=== PATIENT | female | born 1985 | race Caucasian/White ===

== ENCOUNTER 2017-10-17 16:16 | Emergency (ER) | payer OTHER ==
[2017-10-17 16:32] VITALS: BP 92/59; PULSE 73; RESP 20; TEMP 98.9; O2SAT 99
[2017-10-17 17:24] LABS: BASO % 0.5 % (0.0-2.0); EOS # 0.4 K/uL (0.0-0.7); EOS % 4.9 % (0.0-4.0); HEMATOCRIT 35.6 % (34.0-47.0); LYMPH # 1.5 K/uL (1.0-4.3); LYMPH % 20.6 % (20.0-40.0); MEAN CELL VOLUME 90.1 fl (81.0-99.0); MEAN CORPUSCULAR HEMOGLOBIN 29.5 pg (27.0-31.0); MEAN CORPUSCULAR HGB CONC 32.8 g/dL (33.0-37.0); MEAN PLATELET VOLUME 7.7 fl (7.2-11.7); MONO # 0.4 K/uL (0.0-0.8); MONO % 6.1 % (0.0-10.0); NEUT % 67.9 % (50.0-75.0); RED CELL DISTRIBUTION WIDTH 14.8 % (11.5-14.5); WHITE BLOOD COUNT 7.3 K/uL (4.8-10.8)
[2017-10-17 17:29] LABS: ALB/GLOB RATIO 1.3 (1.0-2.1); BILIRUBIN,TOTAL 0.5 mg/dl (0.2-1.3); CALCIUM 8.7 mg/dL (8.4-10.2); CARBON DIOXIDE 25 mmol/L (22-30); CHLORIDE 108 mmol/L (98-107); GFR AFRICAN-AMERICAN > 60; GLUCOSE,RANDOM 98 mg/dL (65-105); SODIUM 139 mmol/l (132-148)
--- NOTE | 2017-10-17 17:29 | ED PDOC ---
HPI: Abdomen Time Seen by Provider: 10/17/17 16:36 Chief Complaint (Nursing): Female Genitourinary Chief Complaint (Provider): Vaginal bleeding History Per: Patient History/Exam Limitations: no limitations Onset/Duration Of Symptoms: Other (1 week) Additional Complaint(s): Patient is a 32 y/o female with no significant past medical history presenting to the emergency department for vaginal bleeding ongoing for one week after an elective in [place], [place]. Reports that the bleeding has increased after returning to work and also noted lower abdominal pain. Reports using five pads today. Denies fever, nausea, vomiting, or other complaints. PCP: none provided. Past Medical History Reviewed: Historical Data, Nursing Documentation, Vital Signs Vital Signs: Last Vital Signs Temp 98.9 F 10/17/17 16:29 Pulse 73 10/17/17 16:29 Resp 20 10/17/17 16:29 BP 92/59 L 10/17/17 16:29 Pulse Ox 99 10/17/17 19:21 - Medical History PMH: No Chronic Diseases - Surgical History Surgical History: No Surg Hx - Family History Family History: States: Unknown Family Hx - Immunization History Hx Tetanus Toxoid Vaccination: No - Home Medications Home Medications: Ambulatory Orders Medication Instructions Recorded Nitrofurantoin Macrocrystals 100 mg PO BID #13 cap 03/07/16 [Macrobid] Cephalexin [cephalexin] 500 mg PO BID #10 cap 06/15/16 Naproxen [Naprosyn] 500 mg PO BID PRN #15 tablet 10/17/17 - Allergies Allergies/Adverse Reactions: Allergies Allergy/AdvReac Type Severity Reaction Status Date / Time No Known Allergies Allergy Verified 03/07/16 17:42 Review of Systems ROS Statement: Except As Marked, All Systems Reviewed And Found Negative Constitutional: Negative for: Fever Gastrointestinal: Positive for: Abdominal Pain (lower). Negative for: Nausea, Vomiting Genitourinary Female: Positive for: Vaginal Bleeding Physical Exam - Reviewed Nursing Documentation Reviewed: Yes Vital Signs Reviewed: Yes - Physical Exam Appears: Positive for: Well, Non-toxic, No Acute Distress Head Exam: Positive for: ATRAUMATIC, NORMAL INSPECTION, NORMOCEPHALIC Skin: Positive for: Normal Color, Warm, Dry Eye Exam: Positive for: Normal appearance ENT: Positive for: Normal ENT Inspection Neck: Positive for: Normal Cardiovascular/Chest: Positive for: Regular Rate, Rhythm. Negative for: Murmur Respiratory: Positive for: Normal Breath Sounds. Negative for: Accessory Muscle Use, Respiratory Distress Gastrointestinal/Abdominal: Positive for: Normal Exam, Soft. Negative for: Tenderness Pelvic Exam: Positive for: External Exam Normal, Blood (Scant). 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 Medical Decision Making Medical Decision Making: Time: 16:39 Initial impression: Vaginal bleeding s/p Initial plan: Type and Screen CMP, Beta-HCG PTT, Prothrombin Time Urinalysis ED Urine Dipstick Pelvic/transvaginal ultrasound Reevaluation Scribe Attestation: Documented by Samira Stovall, acting as a scribe for Sully Ca MD. Provider Scribe Attestation: All medical record entries made by the Scribe were at my direction and personally dictated by me. I have reviewed the chart and agree that the record accurately reflects my personal performance of the history, physical exam, medical decision making, and the department course for this patient. I have also personally directed, reviewed, and agree with the discharge instructions and disposition. Disposition - Clinical Impression Clinical Impression: Postoperative vaginal bleeding following non-genitourinary procedure - Disposition Disposition: Routine/Home Disposition Time: 19:30 Condition: STABLE Additional Instructions: FOLLOW-UP WITH YOUR OB-DISTRICT LEADER FOR REEVALUATION. Prescriptions: Naproxen [Naprosyn] 500 mg PO BID PRN #15 tablet PRN Reason: Pain, Moderate (4-7) Instructions: Dilation and Curettage (GEN) Forms: [employer] (Thai), [facility] ED School/Work Excuse
[2017-10-17 17:30] LABS: PARTIAL THROMBOPLASTIN TIME 25.7 Seconds (25.6-37.1)
[2017-10-17 17:37] LABS: ALKALINE PHOSPHATASE 40 U/L (38-126); ALT/SGPT 25 U/L (9-52); AST/SGOT 30 U/L (14-36); BLOOD UREA NITROGEN 12 mg/dl (7-17); POTASSIUM 4.4 MMOL/L (3.6-5.0)
--- NOTE | 2017-10-17 18:11 | US ---
HISTORY: Bleeding s/p elective Ab COMPARISON: None available. TECHNIQUE: Real-time transabdominal pelvic ultrasound was performed. In addition a transvaginal pelvic ultrasound was necessary to better depict pelvic anatomy. FINDINGS: UTERUS: Measures 6.9 x 3.8 x 4.6 cm. Anteverted. ENDOMETRIUM: Measures 6 mm in diameter. CERVIX: No cervical abnormality identified. RIGHT OVARY: Measures 3.0 x 1.1 x 2.6 cm. Blood flow is demonstrated. LEFT OVARY: Measures 3.2 x 1.5 x 2.0 cm. Blood flow is demonstrated. FREE FLUID: Small pelvic free fluid. OTHER FINDINGS: None. IMPRESSION: Small pelvic free fluid.
[2017-10-17 18:28] LABS: RBC URINE 1 /hpf (0-3); URINE BILIRUBIN NEGATIVE (NEGATIVE); URINE BLOOD SMALL (NEGATIVE); URINE COLOR YELLOW (YELLOW); URINE GLUCOSE (UA) NEG (Normal); URINE KETONE NEGATIVE (NEGATIVE); URINE LEUKOCYTE ESTERASE NEG Leu/uL (Negative); URINE PROTEIN NEGATIVE (NEGATIVE); URINE UROBILINOGEN 0.2-1.0 mg/dL (0.2-1.0); WBC URINE 1 /hpf (0-5)
== END 2017-10-17 19:51 | disposition home or self-care (01) ==
LOC: H.ER 16:16
DX: N99.820 Postprocedural hemorrhage of a genitourinary system organ or structure following a genitourinary system procedure (principal); Z98.890 Other specified postprocedural states